=== PATIENT | male | born 1955 | race Hispanic/Latino ===

== ENCOUNTER 2020-04-11 00:02 | Emergency (ER) | payer BC | END 2020-04-11 00:27 | disposition left against medical advice (07) | LOC: EDH 00:02 | DX: R00.2 Palpitations (principal); R07.89 Other chest pain; R06.02 Shortness of breath; E11.9 Type 2 diabetes mellitus without complications; I10 Essential (primary) hypertension; Z72.0 Tobacco use; Z53.21 Procedure and treatment not carried out due to patient leaving prior to being seen by health care provider ==

== ENCOUNTER 2024-09-28 20:33 | Emergency (ER) | payer BC, OTHER ==
[~2024-09-28] VITALS: Ht 165.1 cm; Wt 99.8 kg
[2024-09-28 20:34] VITALS: TEMP 97.8
--- NOTE | 2024-09-28 20:58 | ERN ---
ED Note History of Present Illness Stated Complaint: SHARP PAIN RT SIDE Chief Complaint: Other Problems Time Seen by MD: 20:34 Dictation: Patient is a 69-year-old male coming in today with a sharp stabbing pain to the right upper quadrant onset yesterday. He denies shortness a breath anterior chest pain jaw pain arm pain or back pain. States the pain is unaffected by food. On examination at bedside, has a positive Braswell's sign states he still has a gallbladder. He does state however that he has had a pleural effusion in the past and this is the same way he felt when he had the pleural effusion. Allergies: Coded Allergies: No Known Allergies (Unverified Allergy, Unknown, 09/28/24) Past Medical History Past Medical History: Diabetes-Type II, High Cholesterol, Hypertension Surgical History: Other Surgical History Other: RT SHOULDER RN Note Reviewed/Agreed w/PFSH: Yes Review of System Dictation CONSTITUTIONAL: Negative except for HPI HEAD/FACE: Negative except for HPI EENT: Negative except for HPI RESPIRATORY: Negative except for HPI GASTROINTESTINAL/ABDOMINAL: Negative except for HPI right upper quadrant pain sharp stabbing GENITOURINARY: Negative except for HPI MUSCULOSKELETAL: Negative except for HPI INTEGUMENTARY: Negative except for HPI NEUROLOGICAL/PSYCH: Negative except for HPI HEMATOLOGIC/LYMPHATIC: Negative except for HPI All Systems Negative, Except as noted above. 13 point review of systems assessed and all negative except for above. Initial Vital Sign VS Vital Signs Date Time Temp Pulse Resp B/P (MAP) Pulse Ox O2 Delivery O2 Flow Rate FiO2 09/28/24 20:34 97.9 93 20 192/103 98 Room Air 09/28/24 22:19 0 21 Physical Exam Dictation Vital Signs reviewed General Appearance: Alert, oriented x 3, moderate acute distress, well developed, nourished. Obese Head and Face: non-traumatic. Eyes: PERRL, pink conjunctivas, eyelid no trauma, anterior chamber with arcus senilis. Ears: Pinnas intact and no signs of trauma or erythema ear canals clear and no discharge TM no erythema Nose: No discharge, no bleeding. Oropharynx: Mouth normal, tongue pink, pharynx clear,no erythema, tonsils no exudates, no abscesses noted, mucous membrane moist Neck: Supple, non-tender, no thyromegaly, no masses, no JVD, no bruits Breast:Deferred Chest:No tenderness, no crepitus, no paradoxical movement, no retractions Lungs:Clear, well-ventilated, symmetric, no rales, no wheezing, no rhonchi, no stridor, good breath sounds bilaterally Heart: Regular rate, regular rhythm, no murmur, no gallops Vascular: no peripheral edema, Abdomen: Soft, positive bowel sounds, nondistended, no guarding, nontender, no rebound, no masses no hepatomegaly, no splenomegaly, positive Braswell's sign, no hernias. Rectal: Deferred Genital: Deferred Neurological: Normal speech, motor function intact, sensory function intact Musculoskeletal: Neck nontender, full range of motion, back nontender, full ran ge of motion, Extremities: nontender, full range of motion Skin: Color pink, dry, no turgor, no rash, no lacerations, no abrasions, no contusions. Lymphatic: Deferred Results (Laboratory/Radiology) Laboratory/Radiology Laboratory Tests Test 09/28/24 21:05 09/28/24 22:14 White Blood Count 18.1 K/uL (4.8-10.8) H Red Blood Count 5.01 MIL/uL (4.50-6.20) Hemoglobin 15.5 g/dL (14.0-18.0) Hematocrit 44.2 % (42-54) Mean Corpuscular Volume 88.2 fL (79-99) Mean Corpuscular Hemoglobin 30.9 pg (27.0-33.0) Mean Corpuscular Hemoglobin Concent 35.1 g/dL (32.0-36.0) Red Cell Distribution Width 11.9 % (11.0-15.5) Platelet Count 334 K/uL (130-400) Mean Platelet Volume 10.0 fL (7.5-10.5) Immature Granulocyte % (Auto) 2.1 % (0-1) H Neutrophils (%) (Auto) 63.8 % (40.0-77.0) Lymphocytes (%) (Auto) 23.7 % (21.0-51.0) Monocytes (%) (Auto) 7.1 % (3.0-13.0) Eosinophils (%) (Auto) 2.3 % (0.0-8.0) Basophils (%) (Auto) 1.0 % (0.0-5.0) Neutrophils # (Auto) 11.6 K/uL (1.8-7.7) H Lymphocytes # (Auto) 4.3 K/uL (1.0-4.8) Monocytes # (Auto) 1.3 K/uL (0.1-1.0) H Eosinophils # (Auto) 0.41 K/uL (0.00-0.70) Basophils # (Auto) 0.18 K/uL (0.00-0.20) Absolute Immature Granulocyte (auto 0.38 K/uL (0-1) Nucleated Red Blood Cells 0.0 % (0.0-0.19) Sodium Level 139 mmol/L (136-145) Potassium Level 4.2 mmol/L (3.5-5.1) Chloride Level 102 mmol/L (101-111) Carbon Dioxide Level 28 mmol/L (21-32) Blood Urea Nitrogen 16 mg/dL (7-18) Creatinine 1.0 mg/dL (0.5-1.3) Glomerular Filtration Rate Calc 82 mL/min (>90) Random Glucose 113 mg/dL (70-105) H Total Calcium 9.3 mg/dL (8.5-10.1) Total Bilirubin 0.4 mg/dL (0.2-1.0) Direct Bilirubin 0.1 mg/dL (0.0-0.3) Aspartate Amino Transf (AST/SGOT) 34 U/L (10-37) Alanine Aminotransferase (ALT/SGPT) 68 U/L (12-78) Alkaline Phosphatase 101 U/L (50-136) Troponin I High Sensitivity < 4 ng/L (4-75) L Total Protein 7.7 g/dL (6.0-8.3) Albumin 4.1 g/dL (3.5-5.0) Lipase 23 U/L (16-77) Lactic Acid Level 2.0 mmol/L (0.8-2.5) US ABDOMINAL RUQ\E\LTD HISTORY: Abdominal pain COMPARISON: None TECHNIQUE: Right upper quadrant abdominal ultrasound study was performed. FINDINGS: Liver measures 17.1 cm. The visualized portion of the pancreas is within normal limits. Liver is echogenic consistent with liver parenchymal disease. No gallstone is seen. Common duct measures 2 mm. No evidence of gallbladder wall thickening is seen. Right kidney measures 11.7 x 6.8 x 6.5 cm. No hydronephrosis is seen of the right kidney. The study is limited due to overlying bowel gas. IMPRESSION: 1. No gallstones or ductal dilatation is seen. 2. No hydronephrosis is seen. contrast was not given. FINDINGS: No pleural effusion is seen bilaterally. There is no evidence of parenchymal disease or pulmonary nodule of the visualized lower lungs. Degenerative changes of the thoracolumbar spine are present. The heart is not enlarged. Liver is enlarged with fatty changes measuring 16 cm. Mild bilateral renal cortical scarring is seen. The liver, spleen, adrenal glands and pancreas are unremarkable. There is no evidence of hydronephrosis bilaterally. No evidence of renal stone is seen. Fecal material is seen in the colon. There are normal size retroperitoneal and mesenteric lymph nodes. No ascites is seen. Atherosclerotic changes are present. Pelvic sidewalls are symmetric bilaterally. Bladder is well distended without wall thickening. IMPRESSION: 1. No acute findings. Labs Reviewed?: Yes EKG Comment: EKG SINUS RHYTHM/HEART RATE 90/RIGHT BUNDLE BRANCH BLOCK/AXIS NORMAL ED Course ED Course Orders Procedure Category Date Status Time Cbc With Differential LAB 09/28/24 Complete 20:55 Troponin I High LAB 09/28/24 Complete Sensitivity 20:55 Urinalysis Profile LAB 09/28/24 Logged 20:55 Us Abdominal Ruq\Ltd US 09/28/24 Resulted 20:55 12 Lead Ekg Tracing- EKG 09/28/24 Logged Technical 20:55 0.9%Nacl 1000ml (Ns PHA 09/28/24 Complete 1000ml) 21:00 Ketorolac PHA 09/28/24 Complete Tromethamine 30mg/Ml 21:00 Chest 1vw RAD 09/28/24 Resulted 20:55 Lipase LAB 09/28/24 Complete 20:55 Basic Metabolic Panel LAB 09/28/24 Complete 20:55 Blood Cult GENESIS 09/28/24 Logged 21:37 Zosyn 3.375gm+Ns 50ml PHA 09/28/24 Complete (Zosyn 3.375gm+Ns 22:00 Hepatic Function Panel LAB 09/28/24 Complete 21:38 Lactic Acid LAB 09/28/24 Complete 21:39 Morphine 4mg Syg PHA 09/28/24 Complete (Morphine 4mg Syg) 22:00 Ct Abdomen/Pelvis CT 09/28/24 Resulted W/Contrast 22:10 Iohexol (Omnipaque) PHA 09/28/24 Complete 22:29 Methylprednisolone PHA 09/28/24 In Process Succ 125mg (Solu-Medr 23:30 Current Medications Medications (Trade) Dose Ordered Sig/Jen Route PRN Reason Start Time Stop Time Status Last Admin Dose Admin Iohexol (Omnipaque) 75 ml STK-MED ONCE IV 09/28/24 22:29 09/28/24 22:29 DC Ketorolac Tromethamine (toRADol) 30 mg ONCE ONCE IVP 09/28/24 21:00 09/28/24 21:01 DC 09/28/24 21:05 Methylprednisolone Sodium Succinate (Solu-medROL 125MG) 125 mg ONCE ONCE IVP 09/28/24 23:30 09/28/24 23:31 Morphine Sulfate (morPHINE 4MG SYG) 4 mg ONCE ONCE IVP 09/28/24 22:00 09/28/24 22:01 DC 09/28/24 22:08 Piperacillin Sod/ Tazobactam Sod (Zosyn 3.375gm+NS 50ml) 3.375 gm ONCE ONCE IVPB 09/28/24 22:00 09/28/24 22:01 DC 09/28/24 22:16 Sodium Chloride 1,000 ml @ 0 mls/hr ONCE ONCE IV 09/28/24 21:00 09/28/24 21:01 DC 09/28/24 21:05 Vital Signs Date Time Temp Pulse Resp B/P (MAP) Pulse Ox O2 Delivery O2 Flow Rate FiO2 09/28/24 22:19 90 18 144/81 96 Room Air* 0 21 09/28/24 20:34 97.9 93 20 192/103 98 Room Air 2325/APPROACH PATIENT AND REASSESSED AFTER LABS TO INCLUDE CHEST X-RAY, CT OF THE ABDOMEN WITH CONTRAST AND ULTRASOUND OF THE RIGHT UPPER QUADRANT FELL TO ELUCIDATE LEUKOCYTOSIS AND PAIN. PATIENT THEN TOLD ME HE HAS BEEN HAVING A COUGH FOR SEVERAL DAYS AND FELT A POP ON HIS CHEST YESTERDAY. WHEN I PALPATED HIS CHEST MORE LATERAL AND SUPERIORLY, IT REPRODUCE THE PAIN. HE STILL STATES HE IS HAVING THE PAIN HOWEVER ONLY WHEN HE COUGHS OR TAKES A DEEP BREATH. DISCUSSED ADMITTING PATIENT FOR LEUKOCYTOSIS AND PAIN, HE AND HIS STATED THAT THEY DID NOT WANT TO BE ADMITTED TO THE HOSPITAL AND WISHED TO BE DISCHARGED HOME WITH TREATMENT FOR ACUTE COSTOCHONDRITIS. HE SAID HE HAS ALREADY BEEN WORKED UP BY AN ONCOLOGIST IN [place] FOR HIS CHRONIC LEUKOCYTOSIS IT USUALLY RANGES [phone]. HE SAID THEY FOUND NOTHING WRONG DESPITE EXHAUSTIVE TESTING. HEART Score Response (Comments) Value History: Low suspicion (0) 0 Age: > 65yrs (+2) 2 Risk Factors: 1-2 risk factors (+1) 1 Initial Troponin: Normal limit (0) 0 Total 3 Medical Decision Making MDM MDM: DIFFERENTIAL DIAGNOSIS: CHOLELITHIASIS/CHOLEDOCHOLITHIASIS/ACS/AMI/ELECTROLYTE IMBALANCE/DEHYDRATION/PANCREATITIS/NEOPLASM/PNEUMONIA/BRONCHITIS RATIONALE: TESTS CONSIDERED AND ORDERED SECONDARY TO SHARED DECISION MAKING INCLUDE: LABS/RADIOLOGY/EKG PREVIOUS OUTSIDE RECORDS REVIEWED: OLD ER VISITS. RISK OF COMPLICATION AND/OR MORBIDITY OR MORTALITY OF PATIENT MANAGEMENT: NONE MEDICATIONS-PER MEDICATION RECONCILIATION NEED FOR HOSPITALIZATION: PATIENT DOES NOT MEET CRITERIA FOR HOSPITALIZATION. PATIENT REFUSES ADMISSION AT THIS TIME. NEED FOR EMERGENCY MAJOR/MINOR SURGERY: NO THERE ARE NO SOCIAL CONCERNS WITH THIS PATIENT. PRESCRIPTION DRUG MANAGEMENT PREDNISONE/IBUPROFEN/ PRESCRIPTIONS WILL INCLUDE SYMPTOMATIC CARE PATIENT'S PRIOR EXTERNAL MEDICAL RECORDS FROM OTHER ER VISITS WERE REVIEWED BY ME INDICATED. PRIOR TESTING AND RESULTS FROM PREVIOUS VISITS WERE REVIEWED. PRIOR TESTS WERE TAKEN INTO ACCOUNT WITH MEDICAL DECISION MAKING AND RESOURCE UTILIZATION, INDEPENDENT HISTORIAN/HISTORIANS WERE USED TO OBTAIN COMPLETE MEDICAL HISTORY. I INDEPENDENTLY INTERPRETED THE TEST THAT WERE PERFORMED, RESULTS WERE REVIEWED BY ME AND CONSIDERED FINDINGS ON RADIOLOGY IF ORDERED. MEDICAL MANAGEMENT AND EXAMINATION INTERPRETATION DISCUSSIONS WERE HAD BY ME WITH OTHER QUALIFIED HEALTHCARE PROFESSIONALS INDICATED FOR THE PATIENT'S CARE. DX & DISP Disposition: Discharge Departure Impression: Primary Impression: Acute costochondritis Additional Impressions: Hyperglycemia, H/O leukocytosis Condition: Stable Scripts Prednisone (Prednisone) 20 Mg Tablet 1 TAB PO AD for 6 Days, #14 TAB 0 Refills TAKE 1 TAB BY MOUTH THREE TIMES PER DAY X3 DAYS, THEN TAKE 1 TAB BY MOUTH TWICE A DAY X2 DAYS, THEN TAKE 1 TAB BY MOUTH ONCE A DAY X1 DAY. TAKE WITH FOOD Prov: PEYTON WITT PERSONAL LINES ACCOUNT EXECUTIVE 09/28/24 Ibuprofen (Ibuprofen) 800 Mg Tablet 800 MG PO Q6H PRN for PAIN, #30 TAB Prov: PEYTON WITT PERSONAL LINES ACCOUNT EXECUTIVE 09/28/24 Acetaminophen with Codeine (Acetaminophen-Cod #3 Tablet) 300 Mg-30 Mg Tablet 1 TAB PO Q6H PRN for MODERATE TO SEVERE PAIN, #12 TAB 0 Refills Prov: PEYTON WITT NP 09/28/24 Additional Instructions: Follow-up with primary care provider in 1 to 2 days. Take medications as directed here in the emergency room. Okay to continue home medications unless otherwise discussed during your visit in the emergency room today. Return to your nearest emergency room if symptoms worsen or if there is no improvement. Call 911 if you need immediate assistance. Take Tylenol or Motrin over -the-counter as needed and if no contraindications are present. Increase oral hydration. A wound culture or urine culture was ordered here in the emergency room department please follow-up with primary care provider and advise them to get repeat ports from our facility. If you had any Frank wrap/splints that were applied here, please do not remove them until you see your primary care or specialty. Take ibuprofen every8 hours with food for two days. Take prednisone as directed with food for six days. See your primary care doctor for follow up. Referrals: SELF,REFERRAL (PCP) Time of Disposition: 23:27 I have reviewed the case, and I agree with, Diagnosis and Plan PEYOTN WITT NP Sep 28, 2024 20:58
[2024-09-28] MEDS: ketOROlac 30MG VIAL (30MG/ML) IVP ONE (21:05)
[2024-09-28] MEDS: 0.9%NACL 1000ML 1,000 ML IV ONE (21:05)
[2024-09-28 21:16] LABS: BASOPHILS # (AUTO) 0.18 K/uL (0.00-0.20); EOSINOPHILS # (AUTO) 0.41 K/uL (0.00-0.70); EOSINOPHILS % (AUTO) 2.3 % (0.0-8.0); HEMATOCRIT 44.2 % (42-54); IMMATURE GRANULOCYTE ABSOLUTE 0.38 K/uL (0-1); LYMPHOCYTES # (AUTO) 4.3 K/uL (1.0-4.8); LYMPHOCYTES % (AUTO) 23.7 % (21.0-51.0); MEAN CORPUSCULAR HEMOGLOBIN 30.9 pg (27.0-33.0); MEAN CORPUSCULAR HGB CONC 35.1 g/dL (32.0-36.0); MEAN CORPUSCULAR VOLUME 88.2 fL (79-99); MONOCYTES # (AUTO) 1.3 K/uL (0.1-1.0); MONOCYTES % (AUTO) 7.1 % (3.0-13.0); NEUTROPHILS # (AUTO) 11.6 K/uL (1.8-7.7); NEUTROPHILS % (AUTO) 63.8 % (40.0-77.0); PLATELET COUNT (AUTO) 334 K/uL (130-400); RED BLOOD CELL COUNT(AUTO) 5.01 MIL/uL (4.50-6.20); RED CELL DISTRIBUTION WIDTH 11.9 % (11.0-15.5); WHITE BLOOD COUNT (AUTO) 18.1 K/uL (4.8-10.8)
[2024-09-28 21:23] LABS: POTASSIUM 4.2 mmol/L (3.5-5.1)
--- NOTE | 2024-09-28 21:23 | HMCIMG ---
CHEST 1VW HISTORY: Chest pain COMPARISON: None FINDINGS: A frontal projection of the chest was obtained. No acute pulmonary infiltrates is seen. The heart is borderline enlarged. Prominent interstitial markings are seen. No evidence of aortic calcification is seen. IMPRESSION: 1. No acute pulmonary infiltrate is seen.
[2024-09-28] MEDS: morPHINE 4 MG SYG IVP ONE (22:08)
[2024-09-28 22:15] LABS: ALBUMIN 4.1 g/dL (3.5-5.0); BILIRUBIN,DIRECT 0.1 mg/dL (0.0-0.3); BILIRUBIN,TOTAL 0.4 mg/dL (0.2-1.0); TOTAL PROTEIN, SERUM 7.7 g/dL (6.0-8.3)
[2024-09-28] MEDS: ZOSYN 3.375GM +NS 50ML IVPB ONE (22:16)
[2024-09-28 22:19] VITALS: BP 144/81; PULSE 90; RESP 18; O2SAT 96
[2024-09-28] MEDS ORDERED: IOHEXOL-350 75 ML VIAL IV ONE (22:29)
--- NOTE | 2024-09-28 22:35 | HMCIMG ---
US ABDOMINAL RUQ\E\LTD HISTORY: Abdominal pain COMPARISON: None TECHNIQUE: Right upper quadrant abdominal ultrasound study was performed. FINDINGS: Liver measures 17.1 cm. The visualized portion of the pancreas is within normal limits. Liver is echogenic consistent with liver parenchymal disease. No gallstone is seen. Common duct measures 2 mm. No evidence of gallbladder wall thickening is seen. Right kidney measures 11.7 x 6.8 x 6.5 cm. No hydronephrosis is seen of the right kidney. The study is limited due to overlying bowel gas. IMPRESSION: 1. No gallstones or ductal dilatation is seen. 2. No hydronephrosis is seen.
--- NOTE | 2024-09-28 23:00 | HMCIMG ---
CT ABDOMEN/PELVIS W/CONTRAST HISTORY: Pain COMPARISON: None TECHNIQUE: Multiple sequential axial images of the abdomen and pelvis were obtained from the dome of the diaphragm through symphysis pubis. Patient was given 75 cc of Omnipaque through intravenous route. Oral contrast was not given. FINDINGS: No pleural effusion is seen bilaterally. There is no evidence of parenchymal disease or pulmonary nodule of the visualized lower lungs. Degenerative changes of the thoracolumbar spine are present. The heart is not enlarged. Liver is enlarged with fatty changes measuring 16 cm. Mild bilateral renal cortical scarring is seen. The liver, spleen, adrenal glands and pancreas are unremarkable. There is no evidence of hydronephrosis bilaterally. No evidence of renal stone is seen. Fecal material is seen in the colon. There are normal size retroperitoneal and mesenteric lymph nodes. No ascites is seen. Atherosclerotic changes are present. Pelvic sidewalls are symmetric bilaterally. Bladder is well distended without wall thickening. IMPRESSION: 1. No acute findings. CT was performed with one or more following dose reduction techniques: automated exposure control, adjustment of the mA and kv according to patient's size, or use of a iterative reconstruction technique.
[2024-09-28] MEDS: Solu-medROL 125MG VIAL IVP ONE (23:28)
[2024-09-28] MEDS ORDERED: PRED20TA3 PO (23:30)
[2024-09-28] MEDS ORDERED: IBUP-2071 PO (23:30)
[2024-09-28] MEDS ORDERED: ACET-2079 PO (23:30)
--- NOTE | 2024-09-29 06:36 | EKG ---
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
== END 2024-09-28 23:59 | disposition home or self-care (01) ==
LOC: EDH 20:33
DX: M94.0 Chondrocostal junction syndrome [Tietze] (principal); E11.65 Type 2 diabetes mellitus with hyperglycemia; E78.00 Pure hypercholesterolemia, unspecified; I10 Essential (primary) hypertension; I45.10 Unspecified right bundle-branch block
CPT/HCPCS: 99285; 74177; 96365; 96375; 76705; 71045; 80076; 84484; 80048; 83690; 85025; 87040 ×2; 83605; 36415; 93005; J1885; J2919; J7030; J2270; J2543; Q9967